=== PATIENT | male | born 1995 | race Caucasian/White ===

== ENCOUNTER 2016-12-05 14:20 | Emergency (ER) | payer MEDICAID, OTHER ==
[~2016-12-05] VITALS: Ht 180.3 cm; Wt 73.0 kg
[2016-12-05 14:31] VITALS: Ht 180.3 cm; Wt 73.0 kg
[2016-12-05] MEDS ORDERED: HYDROCODONE/APAP (5/325) TAB PO ONE (15:30)
--- NOTE | 2016-12-05 16:15 | RADRPT ---
PROCEDURE: XR right forearm. CLINICAL INDICATION: Pain TECHNIQUE: AP and lateral views of the forearm were obtained. COMPARISON: No prior studies are available for comparison. FINDINGS: There is normal mineralization. There is an acute transverse mid ulnar diaphyseal fracture. There is minimal displacement. The joints are unremarkable. The soft tissues are unremarkable. IMPRESSION: Acute transverse mid ulnar diaphyseal fracture RPTAT: [facility] .John Arcos MD, MD Date Time Electronically viewed and signed by .John Arcos MD, on 12/05/2016 16:15 .B/
--- NOTE | 2016-12-05 16:38 | ERD ---
ER Documentation Chief Complaint Date/Time DATE: 12/05/16 Chief Complaint Right forearm pain s/p fall HPI The patient is a 21-year-old male who presents to the Emergency Department with complaint of right forearm pain. The patient reports that approximately 20 minutes prior to arrival, he accidentally tripped and fell, hitting the right mid-forearm against the edge of a stair. Since, he has developed pain and swelling to the mid-forearm region. He denies any numbness, paresthesias or weakness of the distal extremity. Denies any restricted range of motion at the elbow or wrist. He rates his current pain as 8/10, though he has not yet taken any medication for pain relief. Denies any overlying skin lacerations or abrasions. Denies any other injuries. ROS All systems reviewed and are negative except as per history of present illness. Medications Home Meds Active Scripts Ibuprofen* (Motrin*) 600 Mg Tab, 600 MG PO Q6, #30 TAB Prov:ELEN CHAPPELL PA-C 12/05/16 Hydrocodone/Acetaminophen (Fallon 5-325 Tablet) 1 Each Tablet, 1 EACH PO Q6, #10 TAB Prov:ELEN CHAPPELL PA-C 12/05/16 Allergies Allergies: Coded Allergies: Penicillins (Verified Allergy, Unknown, 04/19/14) PMhx/Soc Medical and Surgical Hx: pt denies Medical Hx, pt denies Surgical Hx History of Surgery: No Anesthesia Reaction: No Hx Neurological Disorder: No Hx Respiratory Disorders: No Hx Cardiac Disorders: No Hx Psychiatric Problems: No Hx Miscellaneous Medical Probl: No Hx Alcohol Use: No Hx Substance Use: Yes (MJ) Hx Tobacco Use: Yes Smoking Status: Current every day smoker Physical Exam Vitals Vital Signs Date Time Temp Pulse Resp B/P Pulse Ox O2 Delivery O2 Flow Rate FiO2 12/05/16 17:17 98.9 66 20 128/78 98 Room Air 12/05/16 14:31 98.1 79 16 129/71 99 Physical Exam GENERAL: Well-developed, well-nourished, in no acute distress HEENT: Head is normocephalic, atraumatic. No scleral pallor or icterus. Pupils equal, round and reactive to light. Conjunctiva pink. Moist mucous membranes. NECK: Supple. No tenderness. Full range of motion. RESPIRATORY: Lungs are clear to auscultation bilaterally. Equal breath sounds. Normal expiratory effort. CARDIOVASCULAR: Regular rate and rhythm. No murmurs, rubs, or gallops. EXTREMITIES: No clubbing or cyanosis. Swelling to the ulnar aspect of the right mid-forearm with tenderness to palpation. No wrist, elbow or shoulder tenderness or swelling. No restricted range of motion. Normal skin perfusion. Full range of motion of both the upper and lower extremities bilaterally. Distal neurovascular status intact. Compartments are soft. Muscle tone is normal. No focal swelling or erythema. Distal pulses are palpable, 2+ bilaterally. Capillary refill is less than 2 seconds. NEUROLOGIC: The patient is alert, awake, and oriented x 3. No focal neurologic deficits. Motor and sensation grossly intact. Speech is normal. Equal ornamental rail installer strength bilaterally. INTEGUMENT: Skin is clean, dry and intact. No lacerations or abrasions. PSYCHIATRIC: Appropriate; Cooperative. Results 24 hrs Current Medications Medications (Trade) Dose Ordered Sig/Samy Route PRN Reason Start Time Stop Time Status Last Admin Dose Admin Acetaminophen/ Hydrocodone Bitart (Fallon (5/325)) 1 tab ONCE ONCE PO 12/05/16 15:30 12/05/16 15:31 DC 12/05/16 15:14 Procedures/MDM DIAGNOSTIC TESTS AND INTERPRETATION: PROCEDURE: XR right forearm. CLINICAL INDICATION: Pain TECHNIQUE: AP and lateral views of the forearm were obtained. COMPARISON: No prior studies are available for comparison. FINDINGS:There is normal mineralization. There is an acute transverse mid ulnar diaphyseal fracture. There is minimal displacement. The joints are unremarkable. The soft tissues are unremarkable. IMPRESSION: Acute transverse mid ulnar diaphyseal fracture .John Arcos MD, MD Date Time Electronically viewed and signed by .John Arcos MD, MD on 12/05/2016 16:15 SPLINT APPLICATION: INDICATION: Acute transverse mid ulnar diaphyseal fracture. LOCATION: Right upper extremity. TYPE OF SPLINT: Long arm splint. NEUROVASCULAR EXAM: The patients extremity was neurovascularly intact prior to and status post splint placement. MEDICAL DECISION MAKING: This is a 21-year-old male who presents to the emergency department with right forearm pain s/p fall onto right forearm, hitting the ulnar aspect against the edge of a stair. The patient had tenderness to palpation and swelling over the ulnar aspect of the right mid- forearm on physical examination. Otherwise, vital signs were stable. Range of motion was normal. The differential diagnosis includes, but is not limited to, fracture, sprain, strain, effusion, contusion, laceration, abrasion, dislocation. I have no clinical suspicion for compartment syndrome, compartments are soft. No evidence for neurovascular compromise distal to injury. X-ray imaging revealed an acute transverse mid ulnar diaphyseal fracture. The patient's extremity was placed in a posterior long arm splint. The patient's condition improved during her stay after the administration of Fallon. Upon reevaluation, the patient reports no new complaints and decreased pain. Upon my review and interpretation of the patient's presentation and overall ER course I believe the patient's symptoms are most consistent with acute transverse mid ulnar diaphyseal fracture. At this time, the patient is in stable condition and therefore can be discharged home with prescription for Fallon and ibuprofen and strict return precautions for signs of acute deterioration of condition. The patient is instructed to follow up with a primary medical provider and sales merchandising specialist within 1-2 days for reevaluation and further management, or return to the ER sooner if symptoms persist or worsen. I shared my medical decision making and plan with the patient and he verbally understands and agrees with the plan for further observation and care as an outpatient. At the time of discharge all questions were answered. Departure Diagnosis: Primary Impression: Transverse fracture of shaft of ulna Encounter type: initial encounter Fracture type: closed Fracture alignment : nondisplaced Laterality: right Qualified Code: S52.224A - Closed nondisplaced transverse fracture of shaft of right ulna, initial encounter Condition: Stable Patient Instructions: Radius And Ulna Fx, No Reduction Required, When Your Child Has a Forearm Fracture Referrals: [facility] Additional Instructions: Follow up with your primary medical provider and sales merchandising specialist within 1- 2 days for reevaluation and further management. Return to the ED sooner for any new or worsening symptoms. ELEN CHAPPELL PA-C Dec 05, 2016 16:38
[2016-12-05] MEDS ORDERED: HYDR-906 PO (16:39)
[2016-12-05] MEDS ORDERED: IBUP-1542 PO (16:39)
[2016-12-05 17:17] VITALS: BP 128/78; PULSE 66; RESP 20; TEMP 98.9
== END 2016-12-05 17:18 | disposition home or self-care (01) ==
LOC: FTE 14:20
DX: S52.224A Nondisplaced transverse fracture of shaft of right ulna, initial encounter for closed fracture (principal); F17.210 Nicotine dependence, cigarettes, uncomplicated; W18.39XA Other fall on same level, initial encounter; Y92.9 Unspecified place or not applicable
CPT/HCPCS: 29105; 73090; Z7502; Z7610

== ENCOUNTER 2019-08-03 19:31 | Inpatient (IN) | payer MEDICAID, OTHER ==
[~2019-08-03] VITALS: Ht 180.3 cm; Wt 80.0 kg
[~2019-08-03 19:31] MED LIST: CIPR500T4 PO; HYDR-4011 PO; IBUP-1542 PO
[2019-08-03] MEDS ORDERED: SODIUM CHLORIDE 0.9% 1L BAG IV* STA (19:49)
[2019-08-03] MEDS ORDERED: ACETAMINOPHEN 325 MG TAB PO ONE (20:00)
[2019-08-03] MEDS ORDERED: KETOROLAC 30 MG INJ IV STA (20:03)
[2019-08-03] MEDS ORDERED: PIPER-TAZO 3.375 GM IV (PMX) 100 ML IVPB ONE (20:30)
[2019-08-04] MEDS ORDERED: ACETAMINOPHEN 325 MG TAB PO ONE (00:30)
[2019-08-04] MEDS ORDERED: ACETAMINOPHEN 325 MG TAB PO PRN (01:00)
[2019-08-04] MEDS ORDERED: ONDANSETRON 4 MG INJ IV PRN (01:00)
[2019-08-04] MEDS ORDERED: NACL 0.9% 3 ML SYG IV SCH (01:00)
[2019-08-04] MEDS ORDERED: KETOROLAC 30 MG INJ IV PRN (01:00)
[2019-08-04 03:30] VITALS: BP 107/59; PULSE 99; RESP 18
[2019-08-04 03:37] VITALS: Ht 180.3 cm; Wt 80.0 kg
[2019-08-04] MEDS: SOD CHLORIDE 0.9% 1,000 ML IV SCH ×4 (04:10→20:47)
[2019-08-04] MEDS: CEFTRIAXONE 1 GM/50 ML (PMX) 50 ML IVPB SCH (06:25)
[2019-08-04 07:19] VITALS: BP 98/55; PULSE 75; RESP 18
[2019-08-04 14:21] VITALS: BP 113/64; PULSE 89; RESP 22
[2019-08-04 19:52] VITALS: BP 129/64; PULSE 89; RESP 18
[2019-08-05 02:42] VITALS: BP 91/54; PULSE 100; RESP 18
[2019-08-05] MEDS: SOD CHLORIDE 0.9% 1,000 ML IV SCH ×3 (04:34→21:58)
[2019-08-05] MEDS: CEFTRIAXONE 1 GM/50 ML (PMX) 50 ML IVPB SCH (06:02)
[2019-08-05 07:30] VITALS: BP 106/59; PULSE 89; RESP 20
[2019-08-05] MEDS ORDERED: FLU VACC QS 2019-20 (6MOS UP) 0.5 ML SYG IM* ONE (10:00)
[2019-08-05 13:40] VITALS: BP 113/70; PULSE 100; RESP 20
[2019-08-05 19:55] VITALS: BP 101/53; PULSE 94; RESP 18
[2019-08-06] MEDS: SOD CHLORIDE 0.9% 1,000 ML IV SCH ×3 (00:42→16:42)
[2019-08-06 02:28] VITALS: BP 113/60; PULSE 82; RESP 18
[2019-08-06] MEDS: CEFTRIAXONE 1 GM/50 ML (PMX) 50 ML IVPB SCH (05:53)
[2019-08-06 07:56] VITALS: BP 104/59; PULSE 76; RESP 16
[2019-08-06 14:44] VITALS: BP 102/59; PULSE 78; RESP 16
[2019-08-06 20:00] VITALS: BP 111/66; PULSE 80; RESP 18
[2019-08-07 01:09] VITALS: BP 117/68; PULSE 78; RESP 20
[2019-08-07] MEDS: CEFTRIAXONE 1 GM/50 ML (PMX) 50 ML IVPB SCH (06:08)
[2019-08-07 08:04] VITALS: BP 106/58; PULSE 71; RESP 18
[2019-08-07] MEDS ORDERED: CIPROFLOXACIN 500 MG TAB PO SCH (18:00)
== END 2019-08-07 15:25 | disposition home or self-care (01) | DRG 872 ==
LOC: E/R 19:31 → 2NE 21:29
PROVIDERS: ADMIT Internal Medicine; ATTEND Internal Medicine
DX: A41.51 Sepsis due to Escherichia coli [E. coli] (principal); N12 Tubulo-interstitial nephritis, not specified as acute or chronic; F12.90 Cannabis use, unspecified, uncomplicated; Z88.0 Allergy status to penicillin
CPT/HCPCS: 36415; 71045; 74176; 80048; 80053; 81001; 81003; 83036; 83605; 83735; 84100; 84484; 85025; 85610; 85730; 87086; 90686; 93005; 96374; 96375; J0696; J1885; J2543; J7030